=== PATIENT | male | born 2000 | race Caucasian/White ===

== ENCOUNTER 2021-06-24 08:00 | Outpatient (CLI) | payer OTHER ==
--- NOTE | 2021-06-24 13:59 | XRAY Report ---
PROCEDURE: Finger(s) RT INDICATIONS: CRUSHING INJURY OF RIGHT MIDDLE FINGER TECHNIQUE: PA hand 3 views of the middle finger acquired. COMPARISON: None. FINDINGS: Bones: There is a nondisplaced longitudinal oblique fracture through the tuft of the third distal pha lanx. No suspicious bony lesions. Soft tissues: No suspicious soft tissue calcifications. Soft tissue edema is seen in the middle fin cholo. IMPRESSION: Nondisplaced fracture of the tuft of the third distal phalanx. Reviewed by: Trevor Delgado MD on 06/24/2021 1:57 PM PST Approved by: Trevro Delgado MD on 06/24/2021 1:57 PM PST Station ID: [id number]
== END 2021-06-24 23:59 ==
LOC: DI.N 08:00
PROVIDERS: ATTEND Nurse Practitioner
DX: S62.662A Nondisplaced fracture of distal phalanx of right middle finger, initial encounter for closed fracture (principal)